=== PATIENT | female | born 1975 | race American Indian/Alaskan Native ===

== ENCOUNTER 2016-12-09 14:53 | Emergency (ER) | payer SELFPAY ==
[2016-12-09 15:14] VITALS: BP 141/95
--- NOTE | 2016-12-09 16:21 | Emergency Department Report ---
ED General Adult HPI - General Chief complaint: Skin Rash Stated complaint: RASH/ITCHING Time Seen by Provider: 12/09/16 15:33 Source: patient Mode of arrival: Ambulatory Limitations: No Limitations - History of Present Illness Initial comments: PT c/o itchy rash to hands x a few days. PT states she has bites to her left lower leg x weeks. PT states she has rash in her mouth. PT denies others with close contacts with rash. MD Complaint: rash -: Gradual, days(s) Location: left, right, upper extremity Radiation: non-radiation Severity scale (0 -10): 5 Quality: constant (itching ) Consistency: constant Improves with: other (warm water ) Worsens with: none Associated Symptoms: denies: fever/chills, headaches, loss of appetite, nausea/ vomiting Treatments Prior to Arrival: none - Related Data Previous Rx's Medication Instructions Recorded Last Taken Type Permethrin 5% [Acticin 5% CREAM] 1 applicatio TP ONCE #1 tube 12/09/16 Unknown Rx hydrOXYzine PAMOATE [Vistaril] 25 mg PO Q6HR PRN #12 capsule 12/09/16 Unknown Rx Allergies Allergy/AdvReac Type Severity Reaction Status Date / Time No Known Allergies Allergy Verified 12/09/16 15:14 ED Review of Systems ROS: Stated complaint: RASH/ITCHING Other details as noted in HPI Comment: All other systems reviewed and negative Constitutional: denies: chills, fever Gastrointestinal: denies: nausea, vomiting, diarrhea Genitourinary: denies: abnormal menses Skin: as per HPI, rash Neurological: denies: abnormal gait ED Past Medical Hx - Past Medical History Additional medical history: Vaginal delivery x 3. obesity - Surgical History Additional Surgical History: facial nerve surgery, Head surgery for decompression of nerve, X 1 - Social History Smoking Status: Never Smoker Substance Use Type: Alcohol - Medications Home Medications: Home Medications Medication Instructions Recorded Confirmed Last Taken Type Permethrin 5% [Acticin 5% CREAM] 1 applicatio TP ONCE #1 tube 12/09/16 Unknown Rx hydrOXYzine PAMOATE [Vistaril] 25 mg PO Q6HR PRN #12 capsule 12/09/16 Unknown Rx ED Physical Exam - General Limitations: No Limitations General appearance: alert, in no apparent distress, obese - Head Head exam: Present: atraumatic, normocephalic, normal inspection - Eye Eye exam: Present: normal appearance. Absent: conjunctival injection - ENT ENT exam: Present: normal orophraynx, mucous membranes moist, TM's normal bilaterally, normal external ear exam - Expanded ENT Exam Expanded Mouth exam: Present: tongue normal, other (ulcers noted ). Absent: drooling, trismus Teeth exam: Present: other (multiple teeth removed ). Absent: gingival enlargement Throat exam: Negative: tonsillar erythema, tonsillomegaly, tonsillar exudate, R peritonsillar mass, L peritonsillar mass - Neck Neck exam: Present: normal inspection, full ROM - Respiratory Respiratory exam: Present: normal lung sounds bilaterally. Absent: respiratory distress, wheezes, chest wall tenderness - Cardiovascular Cardiovascular Exam: Present: regular rate, normal rhythm, normal heart sounds - Extremities Exam Extremities exam: Present: full ROM, normal capillary refill. Absent: tenderness, pedal edema, calf tenderness - Expanded Upper Extremity Exam Left Forearm Wrist exam: Present: normal inspection, full ROM Hand Wrist exam: Present: full ROM, other (rash to finger webs and palms ). Absent: tenderness Right Elbow exam: Present: normal inspection, full ROM Forearm Wrist exam: Present: normal inspection, full ROM Hand Wrist exam: Present: full ROM, other (rash ). Absent: normal inspection, tenderness, swelling - Expanded Lower Extremity Exam Left Lower Leg exam: Present: full ROM. Absent: normal inspection (pt has hyperpigmented scaly rash to L post le, no surrounding cellulitis ), tenderness , swelling, ecchymosis Gait: Positive: observed and normal - Back Exam Back exam: Present: normal inspection, full ROM - Neurological Exam Neurological exam: Present: alert, oriented X3, normal gait - Psychiatric Psychiatric exam: Present: normal affect, normal mood - Skin Skin exam: Present: warm, dry, intact, normal color, rash. Absent: urticaria, vesicles, petechiae, abrasion, ecchymosis - Expanded Skin Exam Expanded Type of lesion: Present: rash Distribution of rash: involves palms/soles (involved finger webbing and palms ) Description of rash: Present: macular, papular. Absent: tenderness, erythematous, vesicular, blisters, urticarial, crusting ED Course Vital Signs 12/09/16 15:08 Temperature 97.9 F Pulse Rate 105 H Respiratory 18 Rate Blood Pressure 141/95 O2 Sat by Pulse 99 Oximetry - Reevaluation(s) Reevaluation #1: 12/09/16 16:35 PT aware of dx and plan of care. PT has no questions at this time. - Pulse Oximetry Interpretation Digit-Finger Initial Pulse Oximetry Readin Actions Taken: none ED Medical Decision Making - Differential Diagnosis canker sore, hand foot and mouth, scabies Critical Care Time: No Critical care attestation.: If time is entered above; I have spent that time in minutes in the direct care of this critically ill patient, excluding procedure time. ED Disposition Clinical Impression: Rash, Ulcer aphthous oral Disposition: DC- TO HOME OR SELFCARE Is pt being admited?: No Does the pt Need Aspirin: No Condition: Stable Instructions: Canker Sores (ED), Scabies (ED), Acute Rash (ED) Additional Instructions: No driving or alcohol after taking Vistaril The rash on your hands appears to be scabies. Scabies is contagious. Your close contacts may need treatment. Do not take Benadryl with Vistaril Follow up with your PCP in 3-5 days Return to the ED if worsening or concerns Prescriptions: hydrOXYzine PAMOATE [Vistaril] 25 mg PO Q6HR PRN #12 capsule PRN Reason: Itching Permethrin 5% [Acticin 5% CREAM] 1 applicatio TP ONCE #1 tube Referrals: PRIMARY CARE, [Primary Care Provider] - 3-5 Days DANIEL ROBERTS MD [Staff Physician] - 3-5 Days [facility] [Outside] - 3-5 Days Forms: Work/School Release Form(ED) Time of Disposition: 16:41
== END 2016-12-09 17:05 | disposition home or self-care (01) ==
LOC: ED 14:53
DX: R21 Rash and other nonspecific skin eruption (principal); K12.0 Recurrent oral aphthae
CPT/HCPCS: 99282

== ENCOUNTER 2017-02-07 14:21 | Emergency (ER) | payer SELFPAY ==
[2017-02-07 15:23] VITALS: BP 144/88
== END 2017-02-07 21:50 | disposition left against medical advice (07) ==
LOC: ED 14:21
DX: T14.8XXA Other injury of unspecified body region, initial encounter (principal); Z53.21 Procedure and treatment not carried out due to patient leaving prior to being seen by health care provider

== ENCOUNTER 2017-02-10 07:18 | Emergency (ER) | payer SELFPAY ==
[2017-02-10 07:37] VITALS: BP 124/80
--- NOTE | 2017-02-10 09:04 | Emergency Department Report ---
- General Chief complaint: Skin Rash Stated complaint: BLISTERS ON FEET AND HANDS Time Seen by Provider: 02/10/17 08:21 Source: patient Mode of arrival: Ambulatory Limitations: No Limitations - History of Present Illness Initial comments: This is a 41-year-old female nontoxic, well nourished in appearance, no acute signs of distress presents to the ED complaining of scabies outbreak. Patient states she was recently diagnosed with scabies of the bilateral palms and webs of finger and has been treated with Permethrin cream. They stated symptoms has decreased but not subsided. Patient now is complaining of symptoms worsening and increased itching as well as crusted formation. Patient denies any new trauma to the region. Patient stated she was recently seen by her primary care doctor which was prescribed Bactrim with no relief. Patient denies any fever, chills, nausea, vomiting, chest pain, shortness of breath, abdominal pain, numbness or tingling. Patient denies any allergies. Denies any past medical history. MD complaint: lesion (with crusting) -: Gradual, month(s) (1) Tetanus Up to Date: yes Severity: mild Severity scale (0 -10): 5 Quality: other (itching) Consistency: constant Improves with: none Worsens with: none Context: none Associated symptoms: denies other symptoms Treatments Prior to Arrival: none - Related Data Previous Rx's Medication Instructions Recorded Last Taken Type Permethrin 5% [Acticin 5% CREAM] 1 applicatio TP ONCE #1 tube 12/09/16 Unknown Rx hydrOXYzine PAMOATE [Vistaril] 25 mg PO Q6HR PRN #12 capsule 12/09/16 Unknown Rx Ivermectin 25 mg PO ONCE #5 tablet 02/10/17 Unknown Rx Permethrin 5% [Acticin 5% CREAM] 1 applicatio TP ONCE #1 tube 02/10/17 Unknown Rx Allergies Allergy/AdvReac Type Severity Reaction Status Date / Time No Known Allergies Allergy Verified 12/09/16 15:14 Abscess Boil HPI - HPI Chief Complaint: Skin Rash Stated Complaint: BLISTERS ON FEET AND HANDS Time Seen by Provider: 02/10/17 08:21 Home Medications: Previous Rx's Medication Instructions Recorded Last Taken Type Permethrin 5% [Acticin 5% CREAM] 1 applicatio TP ONCE #1 tube 12/09/16 Unknown Rx hydrOXYzine PAMOATE [Vistaril] 25 mg PO Q6HR PRN #12 capsule 12/09/16 Unknown Rx Ivermectin 25 mg PO ONCE #5 tablet 02/10/17 Unknown Rx Permethrin 5% [Acticin 5% CREAM] 1 applicatio TP ONCE #1 tube 02/10/17 Unknown Rx Allergies/Adverse Reactions: Allergies Allergy/AdvReac Type Severity Reaction Status Date / Time No Known Allergies Allergy Verified 12/09/16 15:14 ED Review of Systems ROS: Stated complaint: BLISTERS ON FEET AND HANDS Other details as noted in HPI Constitutional: denies: chills, fever Eyes: denies: eye pain, eye discharge, vision change ENT: denies: ear pain, throat pain Respiratory: denies: cough, shortness of breath, wheezing Cardiovascular: denies: chest pain, palpitations Endocrine: no symptoms reported Gastrointestinal: denies: abdominal pain, nausea, diarrhea Genitourinary: denies: urgency, dysuria, discharge Musculoskeletal: denies: back pain, joint swelling, arthralgia Skin: pruritus. denies: rash, lesions Neurological: denies: headache, weakness, paresthesias Psychiatric: denies: anxiety, depression Hematological/Lymphatic: denies: easy bleeding, easy bruising ED Past Medical Hx - Past Medical History Previous Medical History?: Yes Hx Hypertension: No Hx CVA: No Hx Heart Attack/AMI: No Hx Congestive Heart Failure: No Hx Diabetes: No Hx Deep Vein Thrombosis: No Hx Pulmonary Embolism: No Hx GERD: No Hx Liver Disease: No Hx Renal Disease: No Hx of Cancer: No Hx Sickle Cell Disease: No Hx Arthritis: No Hx Headaches / Migraines: No Hx Seizures: No Hx Kidney Stones: No Hx Psychiatric Treatment: No Hx Asthma: No Hx COPD: No Hx Tuberculosis: No Hx Dementia: No Hx HIV: No Additional medical history: Vaginal delivery x 3. obesity - Surgical History Past Surgical History?: Yes Hx Coronary Stent: No Hx Open Heart Surgery: No Hx Pacemaker: No Hx Internal Defibrillator: No Hx Cholecystectomy: No Hx Appendectomy: No Hx Breast Surgery: No Additional Surgical History: facial nerve surgery, Head surgery for decompression of nerve, X 1 - Social History Smoking Status: Never Smoker Substance Use Type: Alcohol - Medications Home Medications: Home Medications Medication Instructions Recorded Confirmed Last Taken Type Permethrin 5% [Acticin 5% CREAM] 1 applicatio TP ONCE #1 tube 12/09/16 Unknown Rx hydrOXYzine PAMOATE [Vistaril] 25 mg PO Q6HR PRN #12 capsule 12/09/16 Unknown Rx Ivermectin 25 mg PO ONCE #5 tablet 02/10/17 Unknown Rx Permethrin 5% [Acticin 5% CREAM] 1 applicatio TP ONCE #1 tube 02/10/17 Unknown Rx ED Physical Exam - General Limitations: No Limitations General appearance: alert, in no apparent distress - Head Head exam: Present: atraumatic, normocephalic, normal inspection - Eye Eye exam: Present: normal appearance, PERRL, EOMI. Absent: scleral icterus, conjunctival injection, nystagmus, periorbital swelling, periorbital tenderness Pupils: Present: normal accommodation - ENT ENT exam: Present: normal exam, normal orophraynx, mucous membranes moist, TM's normal bilaterally, normal external ear exam - Neck Neck exam: Present: normal inspection, full ROM. Absent: tenderness, meningismus, lymphadenopathy, thyromegaly - Respiratory Respiratory exam: Present: normal lung sounds bilaterally. Absent: respiratory distress, wheezes, rales, rhonchi, stridor, chest wall tenderness, accessory muscle use, decreased breath sounds, prolonged expiratory - Cardiovascular Cardiovascular Exam: Present: regular rate, normal rhythm, normal heart sounds. Absent: bradycardia, tachycardia, irregular rhythm, systolic murmur, diastolic murmur, rubs, gallop - GI/Abdominal GI/Abdominal exam: Present: soft, normal bowel sounds. Absent: distended, tenderness, guarding, rebound, rigid, diminished bowel sounds - Rectal Rectal exam: Present: deferred - Extremities Exam Extremities exam: Present: normal inspection, full ROM, normal capillary refill. Absent: tenderness, pedal edema, joint swelling, calf tenderness - Back Exam Back exam: Present: normal inspection, full ROM. Absent: tenderness, CVA tenderness (R), CVA tenderness (L), muscle spasm, paraspinal tenderness, vertebral tenderness, rash noted - Neurological Exam Neurological exam: Present: alert, oriented X3, CN II-XII intact, normal gait, reflexes normal - Psychiatric Psychiatric exam: Present: normal affect, normal mood - Skin Skin exam: Present: warm, dry, intact, normal color, other (pruritus with multiple small ecchymosis papules with crusting in the sides and webs of bilateral fingers, and flexor aspects of the wrists.). Absent: rash ED Course Vital Signs 02/10/17 07:29 Temperature 98.2 F Pulse Rate 91 H Blood Pressure 124/80 O2 Sat by Pulse 99 Oximetry - Reevaluation(s) Reevaluation #1: 02/10/17 09:06 Patient is speaking in full sentences with no signs of distress noted. ED Medical Decision Making - Medical Decision Making This is a 41-year-old female that presents with scabies outbreak. Patient was recently prescribed Permethrin with no relief. Patient denies any new trauma to the region. Patient be treated with Permethrin and Oral Ivermectin as per uptodate: We agree with the [place] Centers for Disease Control and Prevention's combination regimen for the treatment of crusted scabies [8]: Topical 5% permethrin or topical 5% benzoyl benzoate applied daily for seven days, then twice weekly until cure AND Oral ivermectin (200 mcg/kg/dose) given on days 1, 2, 8, 9, and 15. Patient was instructed to follow-up with a primary care doctor in 3-5 days or if symptoms worsen and continue return to emergency room as soon as possible possible. At time time of discharge, the patient does not seem toxic or ill in appearance. No acute signs of distress noted. Patient agrees to discharge treatment plan of care. No further questions noted by the patient. Critical care attestation.: If time is entered above; I have spent that time in minutes in the direct care of this critically ill patient, excluding procedure time. ED Disposition Clinical Impression: Scabies Disposition: DC-01 TO HOME OR SELFCARE Is pt being admited?: No Does the pt Need Aspirin: No Condition: Stable Instructions: Scabies (ED), Permethrin (On the skin), Ivermectin (By mouth) Additional Instructions: Follow-up with a primary care doctor in 3-5 days or if symptoms worsen and continue return to emergency room as soon as possible possible. Prescriptions: Ivermectin 25 mg PO ONCE #5 tablet Permethrin 5% [Acticin 5% CREAM] 1 applicatio TP ONCE #1 tube Referrals: PRIMARY CAREMD [Primary Care Provider] - 3-5 Days CEDRIC BUTT MD [Staff Physician] - 3-5 Days [facility] [Outside] - 3-5 Days [facility] [Outside] - 3-5 Days Forms: Work/School Release Form(ED)
== END 2017-02-10 09:24 | disposition home or self-care (01) ==
LOC: ED 07:18
DX: B86 Scabies (principal)
CPT/HCPCS: 99282

== ENCOUNTER 2017-07-03 07:30 | Emergency (ER) | payer SELFPAY ==
--- NOTE | 2017-07-03 08:04 | Emergency Department Report ---
ED Female HPI - General Chief complaint: Urogenital-Female Stated complaint: URINATING BLOOD Time Seen by Provider: 07/03/17 07:59 Source: patient Mode of arrival: Ambulatory Limitations: No Limitations - History of Present Illness Initial comments: Patient here reports that she's been having left-sided pain. Left flank and feels like she is given a yeast infection. The left flank is 4 out of 10 and aching. Reports some urinary burning and frequency. Denies any abdominal pain. She says she has been taking her daughter's antibiotic for a couple days but stop. Pain is located left flank. Worse with movement better with rest. Denies any history of STD or concerns for STD. Denies any nausea vomiting, fever or chills. Last menstrual period was 06/24/2017. She says she just got off her period and when she when she sees blood and she is not sure whether it' s from her period or from having an infection. Her blood pressure is 171/110 and she is asymptomatic. She denies any history of high blood pressure. MD Complaint: dysuria, other (flank pain and vaginal itching after using an antibiotic) Onset/Timin -: week(s) Location: other (left flank) Radiation: non-radiating Severity: mild Severity scale (0 -10): 4 Quality: aching Consistency: intermittent Improves with: other (rest) Worsens with: urination Are you Now?: No Associated Symptoms: dysuria, other (she says she has some blood in her urine when she wipes but she doesn't know if it is coming from just coming off her.). denies: vaginal discharge, vaginal bleeding, abdominal pain, nausea/vomiting, fever/chills, headaches, loss of appetite, hematuria, rash, seizure, shortness of breath, syncope, weakness - Related Data Sexually active: No Previous Rx's Medication Instructions Recorded Last Taken Type Permethrin 5% [Acticin 5% CREAM] 1 applicatio TP ONCE #1 tube 12/09/16 Unknown Rx hydrOXYzine PAMOATE [Vistaril] 25 mg PO Q6HR PRN #12 capsule 12/09/16 Unknown Rx Ivermectin (Nf) 25 mg PO ONCE #5 tablet 02/10/17 Unknown Rx Permethrin 5% [Acticin 5% CREAM] 1 applicatio TP ONCE #1 tube 02/10/17 Unknown Rx Fluconazole [Diflucan TAB] 150 mg PO QDAY 2 Days #2 tablet 07/03/17 Unknown Rx Sulfamethoxazole/Trimethoprim 1 each PO BID 7 Days #14 tablet 07/03/17 Unknown Rx [Bactrim DS TAB] Allergies Allergy/AdvReac Type Severity Reaction Status Date / Time No Known Allergies Allergy Verified 12/09/16 15:14 ED Review of Systems ROS: Stated complaint: URINATING BLOOD Other details as noted in HPI Comment: All other systems reviewed and negative Constitutional: no symptoms reported ENT: denies: ear pain, throat pain Respiratory: no symptoms reported Cardiovascular: denies: chest pain, palpitations, dyspnea on exertion, edema, syncope Gastrointestinal: denies: abdominal pain, nausea, vomiting, diarrhea, constipation Genitourinary: dysuria, frequency, other (vaginal itching). denies: urgency, hematuria, discharge, abnormal menses Musculoskeletal: denies: back pain Skin: denies: rash Neurological: denies: headache ED Past Medical Hx - Past Medical History Previous Medical History?: Yes Hx Hypertension: No Hx CVA: No Hx Heart Attack/AMI: No Hx Congestive Heart Failure: No Hx Diabetes: No Hx Deep Vein Thrombosis: No Hx Pulmonary Embolism: No Hx GERD: No Hx Liver Disease: No Hx Renal Disease: No Hx Sickle Cell Disease: No Hx Arthritis: No Hx Headaches / Migraines: No Hx Seizures: No Hx Kidney Stones: No Hx Psychiatric Treatment: No Hx Asthma: No Hx COPD: No Hx Tuberculosis: No Hx Dementia: No Hx HIV: No Additional medical history: Vaginal delivery x 3. obesity - Surgical History Past Surgical History?: Yes Hx Coronary Stent: No Hx Open Heart Surgery: No Hx Pacemaker: No Hx Internal Defibrillator: No Hx Cholecystectomy: No Hx Appendectomy: No Hx Breast Surgery: No Additional Surgical History: facial nerve surgery, Head surgery for decompression of nerve, X 1 - Family History Family history: hypertension - Social History Smoking Status: Never Smoker Substance Use Type: None - Medications Home Medications: Home Medications Medication Instructions Recorded Confirmed Last Taken Type Permethrin 5% [Acticin 5% CREAM] 1 applicatio TP ONCE #1 tube 12/09/16 Unknown Rx hydrOXYzine PAMOATE [Vistaril] 25 mg PO Q6HR PRN #12 capsule 12/09/16 Unknown Rx Ivermectin (Nf) 25 mg PO ONCE #5 tablet 02/10/17 Unknown Rx Permethrin 5% [Acticin 5% CREAM] 1 applicatio TP ONCE #1 tube 02/10/17 Unknown Rx Fluconazole [Diflucan TAB] 150 mg PO QDAY 2 Days #2 tablet 07/03/17 Unknown Rx Sulfamethoxazole/Trimethoprim 1 each PO BID 7 Days #14 tablet 07/03/17 Unknown Rx [Bactrim DS TAB] ED Physical Exam - General Limitations: No Limitations General appearance: alert, in no apparent distress - Head Head exam: Present: atraumatic, normocephalic, normal inspection - Eye Eye exam: Present: normal appearance, PERRL, EOMI. Absent: periorbital swelling , periorbital tenderness Pupils: Present: normal accommodation - ENT ENT exam: Present: normal exam, normal orophraynx, mucous membranes moist - Neck Neck exam: Present: normal inspection, full ROM. Absent: tenderness, meningismus, lymphadenopathy, thyromegaly - Respiratory Respiratory exam: Present: normal lung sounds bilaterally. Absent: respiratory distress, chest wall tenderness, accessory muscle use - Cardiovascular Cardiovascular Exam: Present: regular rate, normal rhythm, normal heart sounds. Absent: systolic murmur, diastolic murmur - GI/Abdominal GI/Abdominal exam: Present: soft, normal bowel sounds. Absent: distended, tenderness, guarding, rebound, rigid, organomegaly, mass, bruit, pulsatile mass , hernia - Extremities Exam Extremities exam: Present: normal inspection, full ROM, normal capillary refill , other (clubbing cyanosis or edema. +2 pulses to all extremities). Absent: tenderness, pedal edema, joint swelling, calf tenderness - Back Exam Back exam: Present: normal inspection, full ROM, other (ambulates without any difficulties). Absent: tenderness, CVA tenderness (R), CVA tenderness (L), muscle spasm, paraspinal tenderness, vertebral tenderness, rash noted - Neurological Exam Neurological exam: Present: alert, oriented X3, normal gait, reflexes normal. Absent: motor sensory deficit - Psychiatric Psychiatric exam: Present: normal affect, normal mood - Skin Skin exam: Present: warm, dry, intact, normal color. Absent: rash ED Course Vital Signs 07/03/17 07/03/17 07:35 07:37 Temperature 97.8 F 97.8 F Pulse Rate 87 76 Respiratory 18 Rate Blood Pressure 144/84 Blood Pressure 171/100 [Right] O2 Sat by Pulse 100 100 Oximetry - Reevaluation(s) Reevaluation #1: 07/03/17 08:08 Patient is stable and awaiting urinalysis ED Medical Decision Making - Lab Data Lab Results 07/03/17 Range/Units 07:47 Urine Color Yellow (Yellow) Urine Turbidity Clear (Clear) Urine pH 5.0 (5.0-7.0) Ur Specific [place] 1.021 (1.003-1.030) Urine Protein <15 mg/dl (Negative) mg/dL Urine Glucose (UA) Neg (Negative) mg/dL Urine Ketones Neg (Negative) mg/dL Urine Blood Lg (Negative) Urine Nitrite Neg (Negative) Ur Reducing Substances Not Reportable Urine Bilirubin Neg (Negative) Urine Ictotest Not Reportable Urine Urobilinogen < 2.0 (<2.0) mg/dL Ur Leukocyte Esterase Sm (Negative) Urine WBC (Auto) 1.0 (0.0-6.0) /HPF Urine RBC (Auto) 6.0 (0.0-6.0) /HPF U Epithel Cells (Auto) 4.0 (0-13.0) /HPF Urine Mucus Few /HPF Urine HCG, Qual Negative (Negative) Urine culture sent and pending - Medical Decision Making ED course: Here for left flank pain and urinary burning and urgency with vaginal itching after taking her daughter's antibiotic. She urinalysis revealed large amount of blood but she is just getting off her menses. He has small amount of leukocyte Estrace. Coupled with urine showing that she has small amount of leukocyte esterase and urinary urgency and frequency I will choose patient for urinary tract infection despite no white blood cell or bacteria in her urine. I will place patient on Bactrim DS K she says she cannot afford other antibiotic. I discussed diagnosis, treatment plan and lab results with patient and she voiced understanding. Patient does not have a primary care physician so she is to follow-up at [facility] in 2- 3 days. Patient discharged home in stable condition with prescription for Bactrim DS and Diflucan. Critical care attestation.: If time is entered above; I have spent that time in minutes in the direct care of this critically ill patient, excluding procedure time. ED Disposition Clinical Impression: Acute cystitis with hematuria, Acute flank pain, Vagina itching, Urine frequency, Dysuria Disposition: DC-01 TO HOME OR SELFCARE Is pt being admited?: No Does the pt Need Aspirin: No Condition: Stable Instructions: Vaginitis (ED), Urinary Tract Infection in Women (ED) Additional Instructions: Please follow-up with your primary care physician in 2-3 days and if you do not have a primary care physician follow-up at this [facility]. Please see information and discharge instruction paperwork. Increase your fluid intake to 2-3 L of water and cranberry juice daily Take Bactrim DS for urinary tract infection Take Diflucan on for vaginal itching for yeast infection Prescriptions: Fluconazole [Diflucan TAB] 150 mg PO QDAY 2 Days #2 tablet Sulfamethoxazole/Trimethoprim [Bactrim DS TAB] 1 each PO BID 7 Days #14 tablet Referrals: PRIMARY CARE, [Primary Care Provider] - 3-5 Days
[2017-07-03 08:38] LABS: HCG Qualitative,Urine Negative (Negative)
[2017-07-03 08:39] LABS: Bilirubin,Urine NEG (Negative); Blood,Urine LG (Negative); Color,Urine Yellow (Yellow); Mucus,Urine FEW /HPF; Protein,Urine <15 mg/dL mg/dL (Negative); Urobilinogen,Urine < 2.0 mg/dL (<2.0)
[2017-07-03 09:19] VITALS: BP 138/72
== END 2017-07-03 09:19 | disposition home or self-care (01) ==
LOC: ED 07:30
DX: N30.01 Acute cystitis with hematuria (principal)
CPT/HCPCS: 81001; 81025; 87076; 87086; 87186; 99283

== ENCOUNTER 2018-05-24 14:25 | Emergency (ER) | payer SELFPAY ==
[2018-05-24] MEDS ORDERED: NACL 0.9% 500 ML 500 ML IV ONE (14:41)
[2018-05-24 15:25] LABS: Basophils % (Auto) 0.4 % (0.0-1.8); Eosinophils % (Auto) 0.1 % (0.0-4.3); Hematocrit 32.4 % (30.3-42.9); Hemoglobin 10.7 gm/dl (10.1-14.3); Lymphocytes # (Auto) 0.8 K/mm3 (1.2-5.4); Lymphocytes % (Auto) 13.2 % (13.4-35.0); Mean Corpuscular HGB Conc 33 % (30-34); Mean Corpuscular Volume 85 fl (79-97); Monocytes # (Auto) 0.5 K/mm3 (0.0-0.8); Monocytes % (Auto) 7.8 % (0.0-7.3); Platelet Count 339 K/mm3 (140-440); Red Blood Count 3.81 M/mm3 (3.65-5.03); Red Cell Distribution Width 13.8 % (13.2-15.2)
--- NOTE | 2018-05-24 15:27 | XRay Report ---
AP CHEST: HISTORY: Fever AP view of the chest demonstrates a normal mediastinal and cardiac contour with clear lungs and normal bony and soft tissue structures. IMPRESSION: Unremarkable AP chest.
[2018-05-24 15:35] LABS: INR 1.06 (0.87-1.13)
[2018-05-24 15:51] LABS: Alanine Aminotransferase 13 units/L (7-56); BUN/Creatinine Ratio 12; Blood Urea Nitrogen 6 mg/dL (7-17); Calcium 9.2 mg/dL (8.4-10.2); Hemolysis Index 17
[2018-05-24] MEDS ORDERED: TYLENOL PO ONE (16:28)
[2018-05-24] MEDS ORDERED: NACL 0.9% 1000 ML 1,000 ML IV ONE (16:29)
[2018-05-24] MEDS ORDERED: TORADOL IV ONE (16:33)
[2018-05-24] MEDS ORDERED: CATAPRES PO ONE (16:33)
[2018-05-24 17:14] LABS: Bilirubin,Urine NEG (Negative); Blood,Urine MOD (Negative); Color,Urine Yellow (Yellow); Protein,Urine <15 mg/dL mg/dL (Negative); Urobilinogen,Urine < 2.0 mg/dL (<2.0)
--- NOTE | 2018-05-24 18:12 | Emergency Department Report ---
ED Fever HPI - General Chief Complaint: Fever Stated Complaint: TYRON/SORNESS Time Seen by Provider: 05/24/18 16:26 Source: patient Exam Limitations: no limitations - History of Present Illness Initial Comments: 43 year old female with past medical history of elevated blood pressure presents to the Hospital complaining of generalized body aches today. Patient having body aches, fevers, headache, and mild shortness of breath. She denies cough, sore throat, chest pain, abdominal pain, nausea, vomiting, diarrhea, dysuria, sick contacts, or recent travel. Patient did not receive a flu shot this season. She presents with elevated blood pressure but denies a diagnosis of hypertension. Patient states that her blood pressure has been elevated when she goes to the hospital when she is sick for the last 3 years but she has never followed up with the PMD for official diagnosis or to be in started on Lopressor medication. Patient reports decreased appetite and by mouth intake today. ED Review of Systems ROS: Stated complaint: TYRON/SORNESS Other details as noted in HPI Comment: All other systems reviewed and negative ED Past Medical Hx - Past Medical History Previous Medical History?: No Hx Hypertension: No Hx CVA: No Hx Heart Attack/AMI: No Hx Congestive Heart Failure: No Hx Diabetes: No Hx Deep Vein Thrombosis: No Hx Pulmonary Embolism: No Hx GERD: No Hx Liver Disease: No Hx Renal Disease: No Hx Sickle Cell Disease: No Hx Arthritis: No Hx Headaches / Migraines: No Hx Seizures: No Hx Kidney Stones: No Hx Psychiatric Treatment: No Hx Asthma: No Hx COPD: No Hx Tuberculosis: No Hx Dementia: No Hx HIV: No Additional medical history: Vaginal delivery x 3. obesity - Surgical History Past Surgical History?: Yes Hx Coronary Stent: No Hx Open Heart Surgery: No Hx Pacemaker: No Hx Internal Defibrillator: No Hx Cholecystectomy: No Hx Appendectomy: No Hx Breast Surgery: No Additional Surgical History: facial nerve surgery, Head surgery for decomp ression of nerve, X 1 - Social History Smoking Status: Never Smoker Substance Use Type: Alcohol - Medications Home Medications: Home Medications Medication Instructions Recorded Confirmed Last Taken Type Permethrin 5% [Acticin 5% CREAM] 1 applicatio TP ONCE #1 tube 12/09/16 Unknown Rx hydrOXYzine PAMOATE [Vistaril] 25 mg PO Q6HR PRN #12 capsule 12/09/16 Unknown Rx Ivermectin (Nf) 25 mg PO ONCE #5 tablet 02/10/17 Unknown Rx Permethrin 5% [Acticin 5% CREAM] 1 applicatio TP ONCE #1 tube 02/10/17 Unknown Rx Fluconazole [Diflucan TAB] 150 mg PO QDAY 2 Days #2 tablet 07/03/17 Unknown Rx Sulfamethoxazole/Trimethoprim 1 each PO BID 7 Days #14 tablet 07/03/17 Unknown Rx [Bactrim DS TAB] Ibuprofen [Motrin] 800 mg PO Q8HR PRN #30 tablet 05/24/18 Unknown Rx amLODIPine [Norvasc] 5 mg PO DAILY #30 tab 05/24/18 Unknown Rx ED Physical Exam - General Limitations: No Limitations - Other Other exam information: General: No limitations, patient is alert in no acute distress Head exam: Atraumatic, normocephalic Eyes exam: Normal appearance, pupils equal reactive to light, extraocular movements intact ENT: Moist mucous membrane, normal oropharynx Neck exam: Normal inspection, full range of motion, no meningismus nontender Respiratory exam: Clear to auscultation bilateral, no wheezes, rales, crackles Cardiovascular: Normal rate and rhythm, normal heart sounds Abdomen: Soft, nondistended, and nontender, with normal bowel sounds, no rebound, or guarding Extremity: Full range of motion normal inspection no deformity Back: Normal Inspection, full range of motion, no tenderness Neurologic: Alert, oriented x3, cranial nerves intact, no motor or sensory deficit Psychiatric: normal affect, normal mood Skin: Warm, dry, intact ED Course Vital Signs 05/24/18 05/24/18 05/24/18 14:32 15:20 15:22 Temperature 101.5 F H Pulse Rate 122 H Respiratory 26 H Rate Blood Pressure 182/99 182/101 182/101 O2 Sat by Pulse 100 99 98 Oximetry 05/24/18 05/24/18 05/24/18 15:24 15:26 15:28 Temperature Pulse Rate 125 H 120 H 123 H Respiratory 17 27 H 42 H Rate Blood Pressure 182/101 182/101 182/101 O2 Sat by Pulse 98 98 Oximetry 05/24/18 05/24/18 05/24/18 15:30 15:31 15:32 Temperature Pulse Rate 120 H 121 H 120 H Respiratory 42 H 35 H 42 H Rate Blood Pressure 182/101 155/99 155/99 O2 Sat by Pulse 99 100 98 Oximetry 05/24/18 05/24/18 05/24/18 15:34 15:36 15:38 Temperature Pulse Rate 121 H 116 H 117 H Respiratory 41 H 28 H 30 H Rate Blood Pressure 155/99 155/99 155/99 O2 Sat by Pulse 97 100 100 Oximetry 05/24/18 05/24/18 05/24/18 15:40 15:42 15:44 Temperature Pulse Rate 119 H 120 H 119 H Respiratory 42 H 36 H 25 H Rate Blood Pressure 155/99 155/99 155/99 O2 Sat by Pulse 99 99 100 Oximetry 05/24/18 05/24/18 05/24/18 15:46 15:48 15:50 Temperature Pulse Rate 117 H 118 H 116 H Respiratory 27 H 31 H 27 H Rate Blood Pressure 155/99 155/99 155/99 O2 Sat by Pulse 100 100 100 Oximetry 05/24/18 05/24/18 05/24/18 15:52 15:54 15:56 Temperature Pulse Rate 114 H 117 H 115 H Respiratory 16 31 H 34 H Rate Blood Pressure 155/99 155/99 155/99 O2 Sat by Pulse 99 100 100 Oximetry 05/24/18 05/24/18 05/24/18 15:58 16:00 16:01 Temperature Pulse Rate 116 H 116 H 115 H Respiratory 34 H 34 H 29 H Rate Blood Pressure 155/99 155/99 174/121 O2 Sat by Pulse 100 99 99 Oximetry 05/24/18 05/24/18 05/24/18 16:02 16:04 16:32 Temperature Pulse Rate 116 H 124 H Respiratory 25 H 40 H Rate Blood Pressure 174/121 174/121 174/121 O2 Sat by Pulse 99 99 Oximetry 05/24/18 05/24/18 05/24/18 16:34 16:36 16:38 Temperature Pulse Rate Respiratory Rate Blood Pressure 176/118 176/118 176/118 O2 Sat by Pulse 100 100 100 Oximetry 05/24/18 05/24/18 05/24/18 16:40 16:41 16:42 Temperature 100.2 F H Pulse Rate Respiratory Rate Blood Pressure 176/118 176/118 O2 Sat by Pulse 99 99 Oximetry 05/24/18 05/24/18 05/24/18 16:44 16:46 16:48 Temperature Pulse Rate Respiratory Rate Blood Pressure 176/118 176/118 176/118 O2 Sat by Pulse 100 100 98 Oximetry 05/24/18 05/24/18 05/24/18 16:50 16:52 16:54 Temperature Pulse Rate Respiratory Rate Blood Pressure 176/118 176/118 176/118 O2 Sat by Pulse 100 99 99 Oximetry 05/24/18 05/24/18 05/24/18 16:56 16:58 17:00 Temperature Pulse Rate Respiratory Rate Blood Pressure 176/118 176/118 176/118 O2 Sat by Pulse 99 99 100 Oximetry 05/24/18 05/24/18 05/24/18 17:01 17:02 17:04 Temperature Pulse Rate Respiratory Rate Blood Pressure 164/92 164/92 164/92 O2 Sat by Pulse 98 99 98 Oximetry 05/24/18 05/24/18 05/24/18 17:06 17:08 17:10 Temperature Pulse Rate Respiratory Rate Blood Pressure 164/92 164/92 164/92 O2 Sat by Pulse 99 99 100 Oximetry 05/24/18 05/24/18 05/24/18 17:12 17:14 17:28 Temperature Pulse Rate Respiratory Rate Blood Pressure 164/92 164/92 164/92 O2 Sat by Pulse 98 98 97 Oximetry 05/24/18 05/24/18 05/24/18 17:40 17:42 17:44 Temperature 99.8 F H Pulse Rate Respiratory Rate Blood Pressure 164/92 164/92 164/92 O2 Sat by Pulse 100 99 98 Oximetry 05/24/18 05/24/18 05/24/18 17:46 17:48 17:50 Temperature Pulse Rate Respiratory Rate Blood Pressure 164/92 164/92 164/92 O2 Sat by Pulse 99 99 99 Oximetry 05/24/18 05/24/18 05/24/18 17:52 17:54 17:56 Temperature Pulse Rate Respiratory Rate Blood Pressure 164/92 164/92 164/92 O2 Sat by Pulse 98 98 98 Oximetry 05/24/18 05/24/18 05/24/18 17:58 18:00 18:02 Temperature Pulse Rate Respiratory Rate Blood Pressure 164/92 164/92 164/92 O2 Sat by Pulse 98 99 99 Oximetry 05/24/18 05/24/18 05/24/18 18:04 18:06 18:08 Temperature Pulse Rate Respiratory Rate Blood Pressure 164/92 164/92 164/92 O2 Sat by Pulse 99 99 99 Oximetry 05/24/18 05/24/18 05/24/18 18:10 18:12 18:14 Temperature Pulse Rate Respiratory Rate Blood Pressure 164/92 164/92 164/92 O2 Sat by Pulse 99 99 99 Oximetry 05/24/18 05/24/18 05/24/18 18:15 18:16 18:18 Temperature Pulse Rate Respiratory Rate Blood Pressure 164/92 164/92 O2 Sat by Pulse 98 100 99 Oximetry 05/24/18 05/24/18 05/24/18 18:20 18:22 18:24 Temperature Pulse Rate Respiratory Rate Blood Pressure 164/92 164/92 164/92 O2 Sat by Pulse 99 98 99 Oximetry 05/24/18 05/24/18 05/24/18 18:26 18:28 18:30 Temperature Pulse Rate 97 H Respiratory 17 Rate Blood Pressure 164/92 164/92 164/92 O2 Sat by Pulse 98 97 98 Oximetry 05/24/18 05/24/18 05/24/18 18:31 18:32 18:34 Temperature Pulse Rate 99 H 95 H 95 H Respiratory 32 H 28 H 15 Rate Blood Pressure 137/82 137/82 137/82 O2 Sat by Pulse 96 99 97 Oximetry 05/24/18 05/24/18 05/24/18 18:36 18:38 18:40 Temperature Pulse Rate 96 H 95 H 92 H Respiratory 16 21 17 Rate Blood Pressure 137/82 137/82 137/82 O2 Sat by Pulse 98 98 98 Oximetry 05/24/18 05/24/18 05/24/18 18:42 18:44 18:45 Temperature Pulse Rate 98 H 95 H 96 H Respiratory 23 32 H 30 H Rate Blood Pressure 137/82 137/82 127/73 O2 Sat by Pulse 97 98 95 Oximetry 05/24/18 05/24/18 05/24/18 18:46 18:48 18:50 Temperature Pulse Rate 94 H 99 H 96 H Respiratory 29 H 18 26 H Rate Blood Pressure 127/73 127/73 127/73 O2 Sat by Pulse 98 96 96 Oximetry 05/24/18 05/24/18 05/24/18 18:52 18:54 18:56 Temperature Pulse Rate 91 H 95 H 91 H Respiratory 26 H 27 H 29 H Rate Blood Pressure 127/73 127/73 127/73 O2 Sat by Pulse 95 96 94 Oximetry 05/24/18 05/24/18 05/24/18 18:58 19:00 19:02 Temperature Pulse Rate 91 H 92 H 91 H Respiratory 31 H 30 H 27 H Rate Blood Pressure 127/73 137/77 137/77 O2 Sat by Pulse 96 93 93 Oximetry 05/24/18 05/24/18 05/24/18 19:04 19:06 19:08 Temperature Pulse Rate 88 90 90 Respiratory 25 H 30 H 24 Rate Blood Pressure 137/77 137/77 137/77 O2 Sat by Pulse 96 95 97 Oximetry 05/24/18 05/24/18 05/24/18 19:10 19:12 19:14 Temperature Pulse Rate 89 93 H 89 Respiratory 26 H 25 H 26 H Rate Blood Pressure 137/77 137/77 137/77 O2 Sat by Pulse 98 97 98 Oximetry 05/24/18 05/24/18 05/24/18 19:20 19:30 19:31 Temperature 98.5 F Pulse Rate 89 92 H Respiratory 24 21 20 Rate Blood Pressure 130/70 130/70 O2 Sat by Pulse 97 100 Oximetry - Reevaluation(s) Reevaluation #1: 05/24/18 19:46 pt feeling better with improved vital signs after treatment ED Medical Decision Making - Lab Data Result diagrams: 05/24/18 15:07 05/24/18 15:07 Lab Results 05/24/18 05/24/18 05/24/18 Range/Units 15:07 15:07 15:07 WBC 6.3 (4.5-11.0) K/mm3 RBC 3.81 (3.65-5.03) M/mm3 Hgb 10.7 (10.1-14.3) gm/dl Hct 32.4 (30.3-42.9) % MCV 85 (79-97) fl MCH 28 (28-32) pg MCHC 33 (30-34) % RDW 13.8 (13.2-15.2) % Plt Count 339 (140-440) K/mm3 Lymph % (Auto) 13.2 L (13.4-35.0) % [place] % (Auto) 7.8 H (0.0-7.3) % Eos % (Auto) 0.1 (0.0-4.3) % Baso % (Auto) 0.4 (0.0-1.8) % Lymph # 0.8 L (1.2-5.4) K/mm3 [place] # 0.5 (0.0-0.8) K/mm3 Eos # 0.0 (0.0-0.4) K/mm3 Baso # 0.0 (0.0-0.1) K/mm3 Seg Neutrophils % 78.5 H (40.0-70.0) % Seg Neutrophils # 5.0 (1.8-7.7) K/mm3 PT 14.2 (12.2-14.9) Sec. INR 1.06 (0.87-1.13) VBG pH (7.320-7.420) Sodium 136 L (137-145) mmol/L Potassium 3.7 (3.6-5.0) mmol/L Chloride 100.6 (98-107) mmol/L Carbon Dioxide 23 (22-30) mmol/L Anion Gap 16 mmol/L BUN 6 L (7-17) mg/dL Creatinine 0.5 L (0.7-1.2) mg/dL Estimated GFR > 60 ml/min BUN/Creatinine Ratio 12 % Glucose 97 (65-100) mg/dL Lactic Acid (0.7-2.0) mmol/L Calcium 9.2 (8.4-10.2) mg/dL Total Bilirubin 0.50 (0.1-1.2) mg/dL AST 22 (5-40) units/L ALT 13 (7-56) units/L Alkaline Phosphatase 108 (35-129) units/L Total Protein 7.9 (6.3-8.2) g/dL Albumin 4.0 (3.9-5) g/dL Albumin/Globulin Ratio 1.0 % Urine Color (Yellow) Urine Turbidity (Clear) Urine pH (5.0-7.0) Ur Specific [place] (1.003-1.030) Urine Protein (Negative) mg/dL Urine Glucose (UA) (Negative) mg/dL Urine Ketones (Negative) mg/dL Urine Blood (Negative) Urine Nitrite (Negative) Urine Bilirubin (Negative) Urine Urobilinogen (<2.0) mg/dL Ur Leukocyte Esterase (Negative) Urine WBC (Auto) (0.0-6.0) /HPF Urine RBC (Auto) (0.0-6.0) /HPF U Epithel Cells (Auto) (0-13.0) /HPF Influenza A (Rapid) (Negative) Influenza B (Rapid) (Negative) 05/24/18 05/24/18 05/24/18 Range/Units 15:07 15:07 16:45 WBC (4.5-11.0) K/mm3 RBC (3.65-5.03) M/mm3 Hgb (10.1-14.3) gm/dl Hct (30.3-42.9) % MCV (79-97) fl MCH (28-32) pg MCHC (30-34) % RDW (13.2-15.2) % Plt Count (140-440) K/mm3 Lymph % (Auto) (13.4-35.0) % [place] % (Auto) (0.0-7.3) % Eos % (Auto) (0.0-4.3) % Baso % (Auto) (0.0-1.8) % Lymph # (1.2-5.4) K/mm3 [place] # (0.0-0.8) K/mm3 Eos # (0.0-0.4) K/mm3 Baso # (0.0-0.1) K/mm3 Seg Neutrophils % (40.0-70.0) % Seg Neutrophils # (1.8-7.7) K/mm3 PT (12.2-14.9) Sec. INR (0.87-1.13) VBG pH 7.393 (7.320-7.420) Sodium (137-145) mmol/L Potassium (3.6-5.0) mmol/L Chloride (98-107) mmol/L Carbon Dioxide (22-30) mmol/L Anion Gap mmol/L BUN (7-17) mg/dL Creatinine (0.7-1.2) mg/dL Estimated GFR ml/min BUN/Creatinine Ratio % Glucose (65-100) mg/dL Lactic Acid 1.20 (0.7-2.0) mmol/L Calcium (8.4-10.2) mg/dL Total Bilirubin (0.1-1.2) mg/dL AST (5-40) units/L ALT (7-56) units/L Alkaline Phosphatase (35-129) units/L Total Protein (6.3-8.2) g/dL Albumin (3.9-5) g/dL Albumin/Globulin Ratio % Urine Color Yellow (Yellow) Urine Turbidity Clear (Clear) Urine pH 7.0 (5.0-7.0) Ur Specific [place] 1.006 (1.003-1.030) Urine Protein <15 mg/dl (Negative) mg/dL Urine Glucose (UA) Neg (Negative) mg/dL Urine Ketones Neg (Negative) mg/dL Urine Blood Mod (Negative) Urine Nitrite Neg (Negative) Urine Bilirubin Neg (Negative) Urine Urobilinogen < 2.0 (<2.0) mg/dL Ur Leukocyte Esterase Neg (Negative) Urine WBC (Auto) 1.0 (0.0-6.0) /HPF Urine RBC (Auto) 7.0 (0.0-6.0) /HPF U Epithel Cells (Auto) 1.0 (0-13.0) /HPF Influenza A (Rapid) (Negative) Influenza B (Rapid) (Negative) 05/24/18 05/24/18 Range/Units 16:45 17:58 WBC (4.5-11.0) K/mm3 RBC (3.65-5.03) M/mm3 Hgb (10.1-14.3) gm/dl Hct (30.3-42.9) % MCV (79-97) fl MCH (28-32) pg MCHC (30-34) % RDW (13.2-15.2) % Plt Count (140-440) K/mm3 Lymph % (Auto) (13.4-35.0) % [place] % (Auto) (0.0-7.3) % Eos % (Auto) (0.0-4.3) % Baso % (Auto) (0.0-1.8) % Lymph # (1.2-5.4) K/mm3 [place] # (0.0-0.8) K/mm3 Eos # (0.0-0.4) K/mm3 Baso # (0.0-0.1) K/mm3 Seg Neutrophils % (40.0-70.0) % Seg Neutrophils # (1.8-7.7) K/mm3 PT (12.2-14.9) Sec. INR (0.87-1.13) VBG pH (7.320-7.420) Sodium (137-145) mmol/L Potassium (3.6-5.0) mmol/L Chloride (98-107) mmol/L Carbon Dioxide (22-30) mmol/L Anion Gap mmol/L BUN (7-17) mg/dL Creatinine (0.7-1.2) mg/dL Estimated GFR ml/min BUN/Creatinine Ratio % Glucose (65-100) mg/dL Lactic Acid 0.80 (0.7-2.0) mmol/L Calcium (8.4-10.2) mg/dL Total Bilirubin (0.1-1.2) mg/dL AST (5-40) units/L ALT (7-56) units/L Alkaline Phosphatase (35-129) units/L Total Protein (6.3-8.2) g/dL Albumin (3.9-5) g/dL Albumin/Globulin Ratio % Urine Color (Yellow) Urine Turbidity (Clear) Urine pH (5.0-7.0) Ur Specific [place] (1.003-1.030) Urine Protein (Negative) mg/dL Urine Glucose (UA) (Negative) mg/dL Urine Ketones (Negative) mg/dL Urine Blood (Negative) Urine Nitrite (Negative) Urine Bilirubin (Negative) Urine Urobilinogen (<2.0) mg/dL Ur Leukocyte Esterase (Negative) Urine WBC (Auto) (0.0-6.0) /HPF Urine RBC (Auto) (0.0-6.0) /HPF U Epithel Cells (Auto) (0-13.0) /HPF Influenza A (Rapid) Negative (Negative) Influenza B (Rapid) Negative (Negative) - EKG Data -: EKG Interpreted by [place] EKG shows normal: sinus rhythm, axis (qrs -10), QRS complexes (qrsd 76), ST-T waves (no stemi/ t inv) Rate: tachycardia (124) - Radiology Data Radiology results: report reviewed Chest x-ray: No acute findings - Medical Decision Making No signs of sepsis or septic shock. Patient diagnosis is viral syndrome. Impr audelia with ED treatment. Also treated for untreated hypertension. Meds outpatient follow-up will be provided. - Differential Diagnosis viral syndrome, flu, pneumonia, UTI, sepsis Critical Care Time: No Critical care attestation.: If time is entered above; I have spent that time in minutes in the direct care of this critically ill patient, excluding procedure time. ED Disposition Clinical Impression: Viral syndrome, Hypertension Disposition: DC-01 TO HOME OR SELFCARE Is pt being admited?: No Does the pt Need Aspirin: No Condition: Stable Instructions: Hypertension (ED), Viral Syndrome (ED) Additional Instructions: Take the medication as prescribed. Follow up with your doctor with a doctor/clinic provided. Return if symptoms worsen as indicated by your discharge instructions. Take Motrin or Tylenol as needed for pain and fever. You may also use [id number] medicine as other symptoms develop. Please only use the Coricidin HBP products that are safe in people with hypertension. Prescriptions: amLODIPine [Norvasc] 5 mg PO DAILY #30 tab Ibuprofen [Motrin] 800 mg PO Q8HR PRN #30 tablet PRN Reason: Pain , Severe (7-10) Referrals: [facility] [Provider Group] - 3-5 Days (Primary care clinic) ISELA PACKER MD [Staff Physician] - 3-5 Days (Primary care doctor) Forms: Work/School Release Form(ED) Time of Disposition: 19:47
[2018-05-24 19:33] VITALS: BP 130/70
== END 2018-05-24 20:21 | disposition home or self-care (01) ==
LOC: ED 14:25
DX: B34.9 Viral infection, unspecified (principal); I10 Essential (primary) hypertension; E66.9 Obesity, unspecified; Z68.43 Body mass index [BMI] 50.0-59.9, adult
CPT/HCPCS: 36415; 71045; 80053; 81001; 82140; 82805; 85025; 85610; 87040; 87086; 87400; 93005; 93010; 96374; 99285; J1885; J7030; J7040